=== PATIENT | female | born 1950 | race Caucasian/White ===

== ENCOUNTER 2021-09-30 11:41 | Emergency (ER) | payer OTHER, SELFPAY ==
[2021-09-30 11:53] VITALS: BP 171/82; PULSE 69; RESP 16; TEMP 36; O2SAT 100; BMI 23.3
--- NOTE | 2021-09-30 12:28 | ED_ITS ---
HPI - Dizziness <Marilu Lobo PA-C - Last Filed: 09/30/21 16:10> General Chief Complaint: Dizziness Stated Complaint: Near Syncope, vomiting- sent by [facility] Time Seen by Provider: 09/30/21 12:11 Source: patient Mode of arrival: Wheelchair History of Present Illness HPI Narrative: 71-year-old female with no reported past medical history presents to the ED with 3 days of dizziness. Patient states that her dizziness started suddenly 3 days ago when she was eating breakfast. Patient also endorses significant nausea and vomiting. Patient unable to tolerate p.o.. Patient states that her dizziness was tolerable until yesterday, however got much worse last night. Patient is extremely photophobic, describes the dizziness as the room spinning if she opens her eyes. Patient is also clutching her head in the ED, stating that it is due to her dizziness. Patient denies headache, fever, chills, chest pain, shortness of breath, abdominal pain, dysuria, diarrhea, syncope. Patient denies prior episodes of vertigo or dizziness. NKDA. Related Data Previous Rx's Medication Instructions Recorded metoclopramide HCl 10 mg tablet 10 mg PO Q6H PRN #30 tab 09/30/21 (Reglan) Allergies Allergy/AdvReac Type Severity Reaction Status Date / Time No Known Drug Allergies Allergy Verified 09/30/21 12:30 Review of Systems <Marilu Lobo PA-C - Last Filed: 09/30/21 16:10> Review of Systems ROS Unobtainable: All systems reviewed & are unremarkable except as noted in HPI and below Constitutional Constitutional: Denies chills, Denies fatigue, Denies fever(s), Denies frequent falls, Denies lethargy and Denies weakness Eyes Eyes: Denies change in vision, Denies eye discharge, Denies irritation and Denies loss of vision ENT Ears, Nose, Mouth, and Throat: Denies change in voice, Reports dizziness, Denies neck pain, Denies sore throat and Denies throat swelling Cardiovascular Cardiovascular: Denies chest pain, Denies irregular heart rhythm, Denies lightheadedness, Denies palpitations, Denies dyspnea, Denies dyspnea on exertion and Denies orthopnea Respiratory Respiratory: Denies cough, Denies dyspnea, Denies dyspnea on exertion and Denies wheezing Gastrointestinal Gastrointestinal: Denies abdominal pain, Denies change in bowel habits, Denies diarrhea, Reports nausea and Reports vomiting Genitourinary Genitourinary: Denies hematuria, Denies flank pain, Denies urinary incontinence and Denies urinary urgency Musculoskeletal Musculoskeletal: Denies back pain, Denies muscle weakness, Denies neck pain, Denies numbness and Denies tingling Integumentary/Breasts Skin/Breast: Denies pruritus, Denies erythema, Denies rash and Denies wounds Neurologic Neurologic: Denies behavioral changes, Denies confusion, Reports dizziness, Denies frequent falls, Denies loss of vision, Denies numbness, Denies tingling and Denies weakness Psychiatric Psychiatric: Denies anxiety, Denies behavioral changes, Denies confusion, Denies depression, Denies homicidal ideation and Denies suicidal ideation Endocrine Endocrine: Denies fatigue, Denies flushing and Denies palpitations Hematologic/Lymphatic Hematologic/Lymphatic: Denies easy bruising Allergic/Immunologic Allergic/Immunologic: Denies urticaria, Denies throat swelling and Denies wheezing Patient History <Marilu Lobo PA-C - Last Filed: 09/30/21 16:10> Social History Smoking Status: Never smoker Smoking Status: Never smoker Substance Use Type: does not use Exam <Marilu Lobo PA-C - Last Filed: 09/30/21 16:10> Initial Vital Signs Initial Vital Signs: Vital Signs Temperature 96.8 F L 09/30/21 11:53 Pulse Rate 69 09/30/21 11:53 Respiratory Rate 16 09/30/21 11:53 Blood Pressure 171/82 H 09/30/21 11:53 Pulse Oximetry 100 09/30/21 11:53 Const General: cooperative, healthy appearing and comfortable [facility] Head: normal to inspection Eyes General: Yes appearance normal, both eyes and all related structures Neck Neck: normal visual inspection Resp Effort & Inspection: normal respiratory effort Auscultation: clear to auscultation bilaterally Cardio Rate: regular rate Rhythm: regular rhythm Skin Other: 6 cm circular lesion that is raised, erythematous, TTP. Fluctuant, indurated. Some spots of pus oozing. No surrounding erythema. Neuro General: patient alert, patient awake and patient oriented x3 Psych Appearance: grossly normal Mental Status: mental status grossly normal <José Manuel Bernal DO - Last Filed: 10/05/21 01:37> Initial Vital Signs Initial Vital Signs: Vital Signs Temperature 96.8 F L 09/30/21 11:53 Pulse Rate 69 09/30/21 11:53 Respiratory Rate 16 09/30/21 11:53 Blood Pressure 171/82 H 09/30/21 11:53 Pulse Oximetry 100 09/30/21 11:53 Course <Marilu Lobo PA-C - Last Filed: 09/30/21 16:10> Orders Ordered: Discontinued Medications Diphenhydramine HCl (Diphenhydramine 50 Mg/Ml Vial) 50 mg IV NOW ONE Stop: 09/30/21 12:26 Last Admin: 09/30/21 12:58 Dose: 50 mg Documented by: ANDRE Sodium Chloride (Normal Saline 0.9%) 1,000 mls @ 1,000 mls/hr IV BOLUS ONE Stop: 09/30/21 14:42 Last Infusion: 09/30/21 14:59 Dose: 0 mls/hr Documented by: Admin: 09/30/21 13:52 Dose: 1,000 mls/hr Documented by: BEATRIZ Metoclopramide HCl (Metoclopramide 10 Mg/2 Ml Inj) 10 mg IV NOW ONE Stop: 09/30/21 12:25 Last Admin: 09/30/21 12:58 Dose: 10 mg Documented by: ANDRE Vital Signs Vital signs: Vital Signs - 8 hr 09/30/21 11:53 09/30/21 15:51 Temperature 96.8 F L Pulse Rate 69 65 Respiratory Rate 16 Blood Pressure 171/82 H 166/82 H Pulse Oximetry 100 99 <José Manuel Bernal DO - Last Filed: 10/05/21 01:37> Orders Ordered: Discontinued Medications Diphenhydramine HCl (Diphenhydramine 50 Mg/Ml Vial) 50 mg IV NOW ONE Stop: 09/30/21 12:26 Last Admin: 09/30/21 12:58 Dose: 50 mg Documented by: ANDRE Sodium Chloride (Normal Saline 0.9%) 1,000 mls @ 1,000 mls/hr IV BOLUS ONE Stop: 09/30/21 14:42 Last Infusion: 09/30/21 14:59 Dose: 0 mls/hr Documented by: Admin: 09/30/21 13:52 Dose: 1,000 mls/hr Documented by: BEATRIZ Metoclopramide HCl (Metoclopramide 10 Mg/2 Ml Inj) 10 mg IV NOW ONE Stop: 09/30/21 12:25 Last Admin: 09/30/21 12:58 Dose: 10 mg Documented by: ANDRE Vital Signs Vital signs: Vital Signs - 8 hr 09/30/21 11:53 09/30/21 15:51 Temperature 96.8 F L Pulse Rate 69 65 Respiratory Rate 16 Blood Pressure 171/82 H 166/82 H Pulse Oximetry 100 99 MDM - Dizziness <Marilu Lobo PA-C - Last Filed: 09/30/21 16:10> Medical Records Attestation: I reviewed the patient's medical records. Lab Data Attestation: I reviewed the patient's lab results. Lab results narrative: Labs within normal limits. Result diagrams: 09/30/21 13:15 09/30/21 13:15 Labs: Lab Results 09/30/21 09/30/21 09/30/21 Range/Units 13:15 13:15 13:15 WBC 8.0 (4.5-11.0) X10^3/uL RBC 5.44 H (4.0-5.2) X10^6/uL Hgb 16.1 H (12.0-16.0) g/dL Hct 48.2 H (36-46) % MCV 88.7 (80-100) fL MCH 29.6 (26-34) PG MCHC 33.4 (30-36) % RDW 13.7 (11.6-14.8) % Plt Count 247 (150-400) X10^3/uL Neut % (Auto) 91.8 H (50-75) % Lymph % (Auto) 6.2 L (25-40) % [place] % (Auto) 1.6 L (3-14) % Eos % (Auto) 0.1 L (2-4) % Baso % (Auto) 0.3 (0-2) % Neut # (Auto) 7300 H (2622-4036) /uL Lymph # (Auto) 500 L (0024-1225) /uL [place] # (Auto) 100 (0-900) /uL Eos # (Auto) 0 (0-450) /uL Baso # (Auto) 0 (0-100) /uL PT 11.3 (10.1-12.7) SECONDS INR 1.0 (0.9-1.3) APTT 29 (26.4-36.2) SECONDS Sodium 138 (137-145) mmol/L Potassium 4.2 (3.4-5.1) mmol/L Chloride 104 (98-107) mmol/L Carbon Dioxide 26 (22-32) mmol/L BUN 15 (7-17) mg/dL Creatinine 0.79 (0.52-1.04) mg/dL Estimated GFR > 60 (>60) mL/min BUN/Creatinine Ratio 19.0 (6-22) Glucose 136 H (80-110) mg/dL Calcium 10.2 (8.4-10.2) mg/dL Total Bilirubin 0.7 (0.2-1.3) mg/dL AST 28 (14-36) IU/L ALT 21 (<35) IU/L Alkaline Phosphatase 60 (38-126) U/L Total Protein 8.2 (6.3-8.2) g/dL Albumin 5.2 H (3.5-5.0) g/dL Globulin 3.0 (1.7-4.1) g/dL Albumin/Globulin Ratio 1.7 (1.0-2.8) Point of Care Testing Glucose POC 202 MDM Narrative Medical decision making narrative: 71-year-old female with no reported past medical history presents to the ED with 3 days of dizziness. Concern for peripheral vertigo versus CVA versus dehydration. Physical exam, history reassuring, patient is neurologically in tact, unlikely CVA. Patient's symptoms improved with Reglan and Benadryl, IV fluids. Discharge patient with prescription for Reglan. ED return precautions discussed with patient. Patient verbalized understanding. <José Manuel Bernal, DO - Last Filed: 10/05/21 01:37> Lab Data Labs: Lab Results 09/30/21 09/30/21 09/30/21 Range/Units 13:15 13:15 13:15 WBC 8.0 (4.5-11.0) X10^3/uL RBC 5.44 H (4.0-5.2) X10^6/uL Hgb 16.1 H (12.0-16.0) g/dL Hct 48.2 H (36-46) % MCV 88.7 (80-100) fL MCH 29.6 (26-34) PG MCHC 33.4 (30-36) % RDW 13.7 (11.6-14.8) % Plt Count 247 (150-400) X10^3/uL Neut % (Auto) 91.8 H (50-75) % Lymph % (Auto) 6.2 L (25-40) % [place] % (Auto) 1.6 L (3-14) % Eos % (Auto) 0.1 L (2-4) % Baso % (Auto) 0.3 (0-2) % Neut # (Auto) 7300 H (6137-1614) /uL Lymph # (Auto) 500 L (9453-2205) /uL [place] # (Auto) 100 (0-900) /uL Eos # (Auto) 0 (0-450) /uL Baso # (Auto) 0 (0-100) /uL PT 11.3 (10.1-12.7) SECONDS INR 1.0 (0.9-1.3) APTT 29 (26.4-36.2) SECONDS Sodium 138 (137-145) mmol/L Potassium 4.2 (3.4-5.1) mmol/L Chloride 104 (98-107) mmol/L Carbon Dioxide 26 (22-32) mmol/L BUN 15 (7-17) mg/dL Creatinine 0.79 (0.52-1.04) mg/dL Estimated GFR > 60 (>60) mL/min BUN/Creatinine Ratio 19.0 (6-22) Glucose 136 H (80-110) mg/dL Calcium 10.2 (8.4-10.2) mg/dL Total Bilirubin 0.7 (0.2-1.3) mg/dL AST 28 (14-36) IU/L ALT 21 (<35) IU/L Alkaline Phosphatase 60 (38-126) U/L Total Protein 8.2 (6.3-8.2) g/dL Albumin 5.2 H (3.5-5.0) g/dL Globulin 3.0 (1.7-4.1) g/dL Albumin/Globulin Ratio 1.7 (1.0-2.8) Point of Care Testing Glucose POC 202 Discharge Plan Departure Patient Disposition: Home Clinical Impression: Vertigo Instructions: DI for Vertigo Activity Restrictions/Additional Instructions: You were evaluated in the ED today for dizziness. Your labs were normal today. Your symptoms improved with Reglan and Benadryl. You may continue to take Reglan, Benadryl at home for your symptoms. Return to the ED if your symptoms worsen, you are vomiting uncontrollably, you develop fevers, chills. Prescriptions: New metoclopramide HCl [Reglan] 10 mg tablet 10 mg PO Q6H PRN (Reason: nausea and vomiting) Qty: 30 0RF <José Manuel Bernal DO - Last Filed: 10/05/21 01:37> Cosign ED Attending Myriam Attestation: I was immediately available in the department for consultation. Documentation has been reviewed. I agree with assessment and plan.
[2021-09-30] MEDS: diphenhydrAMINE 50 MG/ML VIAL IV (12:58)
[2021-09-30] MEDS: METOCLOPRAMIDE 10 MG/2 ML INJ IV (12:58)
[2021-09-30 13:25] LABS: Add Manual Diff / Slide Review NO; Basophils Absolute Auto 0 /uL (0-100); Basophils Percent Auto 0.3 % (0-2); Eosinophils Absolute Auto 0 /uL (0-450); Eosinophils Percent Auto 0.1 % (2-4); Hematocrit 48.2 % (36-46); Hemoglobin 16.1 g/dL (12.0-16.0); Lymphocytes Absolute Auto 500 /uL (1100-4500); Lymphocytes Percent Auto 6.2 % (25-40); Mean Corpuscular HGB Conc 33.4 % (30-36); Mean Corpuscular Hemoglobin 29.6 PG (26-34); Mean Corpuscular Volume 88.7 fL (80-100); Monocytes Absolute Auto 100 /uL (0-900); Monocytes Percent Auto 1.6 % (3-14); Neutrophils Absolute Auto 7300 /uL (1500-7000); Neutrophils Percent Auto 91.8 % (50-75); Platelet Count 247 X10^3/uL (150-400); Red Blood Cell Count 5.44 X10^6/uL (4.0-5.2); Red Cell Distribution Width 13.7 % (11.6-14.8)
[2021-09-30 13:32] LABS: Prothrombin Time 11.3 SECONDS (10.1-12.7)
[2021-09-30 13:35] LABS: PTT Partial Thromboplastin Tim 29 SECONDS (26.4-36.2)
[2021-09-30 13:42] LABS: Alanine Aminotransferase 21 IU/L (<35); Albumin 5.2 g/dL (3.5-5.0); Albumin Globulin Ratio 1.7 (1.0-2.8); Alkaline Phosphatase 60 U/L (38-126); Aspartate Aminotransferase 28 IU/L (14-36); Bilirubin Total 0.7 mg/dL (0.2-1.3); Blood Urea Nitrogen 15 mg/dL (7-17); Calcium 10.2 mg/dL (8.4-10.2); Carbon Dioxide 26 mmol/L (22-32); Chloride 104 mmol/L (98-107); Estimated Glomerular Filt Rate > 60 mL/min (>60); Glucose 136 mg/dL (80-110); HEMOLYSIS < 15 (0-50); Potassium 4.2 mmol/L (3.4-5.1); Sodium 138 mmol/L (137-145); Total Protein 8.2 g/dL (6.3-8.2)
[2021-09-30] MEDS: SODIUM CHLORIDE 0.9% 1,000 ML 1000 ML IV (13:52)
[2021-09-30 15:51] VITALS: BP 166/82; PULSE 65; O2SAT 99
== END 2021-09-30 16:01 | disposition home or self-care (01) ==
PROVIDERS: Emergency Provider Student in an Organized Health Care Education/Training Program
DX: R42 Dizziness and giddiness (principal); R11.2 Nausea with vomiting, unspecified
CPT/HCPCS: 36415; 80053; 82962; 85025; 85610; 85730; 96361; 96374; 96375; 99283; 99284; J1200; J2765